=== PATIENT | male | born 1955 | race Caucasian/White ===

== ENCOUNTER → 2017-05-09 | Outpatient (CLI) | payer BC ==
[~2017-05-09] MED LIST: PANT40TA PO; SIMV40TA2 PO
[2017-05-09 12:42] LABS: BASO ABS # 0.06 K/uL (0-0.2); COMPLETE YES; EOS % 10.9 %; HEMATOCRIT 43.2 % (42-52); IG% 0.3 %; LYMPH % 36.8 %; LYMPH ABS # 2.29 K/uL (1.2-3.4); MEAN CELL VOLUME 89.6 fL (80-100); MEAN CORPUSCULAR HEMOGLOBIN 29.7 pg (25-34); MEAN CORPUSCULAR HGB CONC 33.1 g/dl (32-36); MEAN PLATELET VOLUME 10.1 fL (7.4-10.4); MONO % 10.1 %; NEUT % 40.9 %; PLATELET COUNT 215 K/uL (130-400); RED BLOOD COUNT 4.82 M/uL (4.7-6.1); WHITE BLOOD COUNT 6.23 K/uL (4.8-10.8)
[2017-05-09 13:24] LABS: ALT/SGPT 34 U/L (12-78); AST/SGOT 28 U/L (15-37); BLOOD UREA NITROGEN 17 mg/dl (7-18); BUN/CREATININE RATIO 17.3 (10-20); CALCIUM 8.6 mg/dl (8.5-10.1); CARBON DIOXIDE 27 mmol/L (21-32); CHLORIDE 108 mmol/L (98-107); CHOLESTEROL 197 mg/dl (0-200); GLUCOSE 93 mg/dl (70-99); POTASSIUM 4.1 mmol/L (3.5-5.1); SODIUM 140 mmol/L (136-145)
[2017-05-09 13:26] LABS: ALB/GLOB RATIO 1.2 (0.9-2); ALKALINE PHOSPHATASE 76 U/L (45-117); HDL CHOLESTEROL 49 mg/dl; LDL CHOLESTEROL CALCULATED 123 mg/dl; TRIGLYCERIDES 123 mg/dl (0-150); VERY LOW DENSITY LIPOPROT CALC 25 mg/dl
== END | disposition home or self-care (01) ==
LOC: C.LABBFT 07:47
PROVIDERS: ATTEND Internal Medicine
DX: E78.00 Pure hypercholesterolemia, unspecified (principal); D64.9 Anemia, unspecified; R74.8 Abnormal levels of other serum enzymes

== ENCOUNTER 2018-03-31 19:11 | Emergency (ER) | payer BC ==
[~2018-03-31] VITALS: Ht 175.3 cm; Wt 109.0 kg
[2018-03-31 19:19] VITALS: TEMP 36.5; Ht 175.3 cm; Wt 109.0 kg
[2018-03-31] MEDS ORDERED: ASPIRIN 81 MG CHEW PO STA (19:35)
[2018-03-31 19:49] LABS: BASO % 0.4 %; BASO ABS # 0.05 K/uL (0-0.2); EOS % 4.4 %; HEMATOCRIT 46.2 % (42-52); HEMOGLOBIN 15.3 g/dL (14.0-18.0); IG# 0.04 K/uL (0.00-0.02); LYMPH % 40.9 %; LYMPH ABS # 4.64 K/uL (1.2-3.4); MEAN CELL VOLUME 88.7 fL (80-100); MEAN CORPUSCULAR HEMOGLOBIN 29.4 pg (25-34); MEAN CORPUSCULAR HGB CONC 33.1 g/dl (32-36); MEAN PLATELET VOLUME 9.5 fL (7.4-10.4); MONO ABS # 1.13 K/uL (0.11-0.59); NEUT % 43.9 %; NEUT ABS # 4.98 K/uL (1.4-6.5); PLATELET COUNT 254 K/uL (130-400); RED CELL DISTRIBUTION WIDTH CV 13.5 % (11.5-14.5); RED CELL DISTRIBUTION WIDTH SD 43.8 fL (36.4-46.3); WHITE BLOOD COUNT 11.34 K/uL (4.8-10.8)
--- NOTE | 2018-03-31 19:51 | DIAGNOSTIC IMAGING REPORT ---
CHEST ONE VIEW PORTABLE CLINICAL HISTORY: CHEST PAIN pain COMPARISON STUDY: 02/12/2012 FINDINGS: The bones soft tissues and hemidiaphragms are normal. The cardiomediastinal silhouette is normal. The lungs are clear. The pulmonary vasculature is normal. Slight fullness right hilum felt to be secondary to patient rotation IMPRESSION: No acute process. The above report was generated using voice recognition software. It may contain grammatical, syntax or spelling errors. Electronically signed by: Saravanan Booth M.D. 03/31/2018 7:49 PM Dictated Date/Time: 03/31/2018 7:49 PM
[2018-03-31] MEDS ORDERED: MULT-513 PO (20:09)
[2018-03-31] MEDS ORDERED: FERR325T18 PO (20:09)
[2018-03-31 20:17] LABS: ALBUMIN 4.5 gm/dl (3.4-5.0); CKMB 2.5 ng/ml (0.5-3.6); TOTAL PROTEIN 8.3 gm/dl (6.4-8.2)
[2018-03-31 21:18] LABS: CALCIUM 9.9 mg/dl (8.5-10.1); CREATININE 1.1 mg/dl (0.60-1.40); POTASSIUM 3.9 mmol/L (3.5-5.1)
[2018-03-31 21:54] VITALS: BP 121/86; PULSE 67; O2SAT 96
--- NOTE | 2018-04-01 00:14 | EMERGENCY ROOM VISIT NOTE ---
History First contact with patient: 19:18 Chief Complaint: CHEST PAIN Stated Complaint: LEFT SIDE CHEST PAIN, HEAVINESS Nursing Triage Summary: Left sided chest pain radiating at times to left arm and left side of neck. SX' s for the last 2 days. Pt denies any oher discomforts. History of Present Illness The patient is a 62 year old male who presents to the Emergency Room with complaints of left chest pain that has been going on for 2 days persistently. He describes as heaviness. He ate occasional occasional twinge that lasts a second or 2 in his arm and neck. No radiation to his back. No associated symptoms such as shortness of breath, nausea, vomiting, or diaphoresis. He says nothing makes it better or worse. it is not pleuritic is not worse with movement. he has had some stress. No blood or melena stool. No syncope, lightheadedness, or dizziness. No trauma or injury. Source of History: patient, spouse/significant other Review of Systems As above. All other systems reviewed were negative unless otherwise stated in history. At least 10 were reviewed Past Medical/Surgical History Old medical records were reviewed. Nurse's notes were reviewed and I agree with. Social History Smoking Status: Never Smoker Alcohol Use: none Current/Historical Medications Scheduled Ferrous Gluconate (Ferrous Gluconate), 324 MG PO DAILY Multivitamins/Minerals (Mvi With Minerals), 1 TAB PO DAILY Pantoprazole (Protonix), 40 MG PO DAILY Simvastatin (Zocor), 40 MG PO QPM Physical Exam Vital Signs Date Time Temp Pulse Resp B/P (MAP) Pulse Ox O2 Delivery O2 Flow Rate FiO2 03/31/18 21:54 67 18 121/86 96 Room Air 03/31/18 20:44 67 18 170/95 98 Room Air 03/31/18 19:37 63 03/31/18 19:27 97 Room Air 03/31/18 19:19 36.5 63 20 157/84 99 Room Air Physical Exam General: Well developed well nourished in no acute distress, breathing comfortably on room air. Normal speech HEENT: Normal cephalic atraumatic. Pupils are equal round and reactive to light. Extraocular movements are intact. Oropharynx is pink with moist mucous membranes. No swelling of the mouth lips or tongue. Neck: Supple with a midline trachea. No meningeal signs or stiffness, no JVD or bruits. No Stridor. Chest: Clear to auscultation bilaterally. No wheezes or rhonchi. No increased work of breathing. Heart: Regular rate and rhythm without murmurs or gallops. Abdomen: Soft nontender, nondistended without rebound guarding or rigidity. Extremities: No cyanosis clubbing or edema. No calf tenderness or assymetry Spine/Back. Non tender to palpation. No CVA tenderness Skin: Good turgor without rashes. Neurologic exam: Cranial nerves two through 12 are intact. Motor and sensation are intact and symmetrical throughout. Medical Decision & Procedures ER Provider Diagnostic Interpretation: Chest x-ray: No acute infiltrate, failure, pneumothorax seen Note: I have personally interpreted the x-ray and clinical decision-making is based upon my interpretation Laboratory Results 03/31/18 19:25 Red Blood Count 5.21, Mean Corpuscular Volume 88.7, Mean Corpuscular Hemoglobin 29.4, Mean Corpuscular Hemoglobin Concent 33.1, Mean Platelet Volume 9.5, Neutrophils (%) (Auto) 43.9, Lymphocytes (%) (Auto) 40.9, Monocytes (%) (Auto) 10.0, Eosinophils (%) (Auto) 4.4, Basophils (%) (Auto) 0.4, Neutrophils # (Auto ) 4.98, Lymphocytes # (Auto) 4.64, Monocytes # (Auto) 1.13, Eosinophils # (Auto ) 0.50, Basophils # (Auto) 0.05 03/31/18 19:25 Test 03/31/18 19:25 03/31/18 21:24 White Blood Count 11.34 K/uL (4.8-10.8) Red Blood Count 5.21 M/uL (4.7-6.1) Hemoglobin 15.3 g/dL (14.0-18.0) Hematocrit 46.2 % (42-52) Mean Corpuscular Volume 88.7 fL (80-100) Mean Corpuscular Hemoglobin 29.4 pg (25-34) Mean Corpuscular Hemoglobin Concent 33.1 g/dl (32-36) Platelet Count 254 K/uL (130-400) Mean Platelet Volume 9.5 fL (7.4-10.4) Neutrophils (%) (Auto) 43.9 % Lymphocytes (%) (Auto) 40.9 % Monocytes (%) (Auto) 10.0 % Eosinophils (%) (Auto) 4.4 % Basophils (%) (Auto) 0.4 % Neutrophils # (Auto) 4.98 K/uL (1.4-6.5) Lymphocytes # (Auto) 4.64 K/uL (1.2-3.4) Monocytes # (Auto) 1.13 K/uL (0.11-0.59) Eosinophils # (Auto) 0.50 K/uL (0-0.5) Basophils # (Auto) 0.05 K/uL (0-0.2) RDW Standard Deviation 43.8 fL (36.4-46.3) RDW Coefficient of Variation 13.5 % (11.5-14.5) Immature Granulocyte % (Auto) 0.4 % Immature Granulocyte # (Auto) 0.04 K/uL (0.00-0.02) Anion Gap 9.0 mmol/L (3-11) Est Creatinine Clear Calc Drug Dose 84.7 ml/min Estimated GFR () 82.9 Estimated GFR (Non- 71.6 BUN/Creatinine Ratio 12.4 (10-20) Calcium Level 9.9 mg/dl (8.5-10.1) Total Bilirubin 0.4 mg/dl (0.2-1) Direct Bilirubin 0.1 mg/dl (0-0.2) Aspartate Amino Transf (AST/SGOT) 28 U/L (15-37) Alanine Aminotransferase (ALT/SGPT) 34 U/L (12-78) Alkaline Phosphatase 85 U/L (45-117) Total Creatine Kinase 252 U/L (39-308) Creatine Kinase MB 2.5 ng/ml (0.5-3.6) Creatine Kinase MB Ratio 1.0 (0-3.0) Total Protein 8.3 gm/dl (6.4-8.2) Albumin 4.5 gm/dl (3.4-5.0) Lipase 189 U/L (73-393) Thyroid Stimulating Hormone (TSH) 1.920 uIu/ml (0.300-4.500) Bedside Troponin I < 0.030 ng/ml (0-0.045) Medications Administered Medications (Trade) Dose Ordered Sig/Osbaldo Route Start Time Stop Time Status Last Admin Dose Admin Aspirin (Aspirin Chew) 324 mg NOW STAT PO 03/31/18 19:35 03/31/18 19:37 DC 03/31/18 19:51 324 MG ECG Per My Interpretation Indication: chest pain Rate (beats per minute): 62 Rhythm: normal sinus Findings: nonspecific-ST abn, no acute ischemic change Change: no significant change Change: Compared to 12-20-2001, no acute change. Slight flattening of the T-wave EKG #2. Normal sinus rhythm with a rate of 60. No acute ischemic changes or ectopy. No significant change compared EKG #1. Medical Decision Differential diagnosis includes, acute coronary syndrome, arrhythmia, CHF, anxiety, GERD, PE, aortic pathology This patient comes in as described above .he has had some left-sided chest pressure for 2 days persistently. He looks well on exam. EKG does not show any definite acute ischemic changes .EKG #2 does not show any progression or changes when compared EKG #1. he had 2 troponins done over 90 minutes apart which were negative. chest x-ray does not suggest congestive heart failure, pneumonia, or pneumothorax. IHe has no significant electrolyte or metabolic abnormalities. He feels good would like to go home. he was given aspirin while he was here. I think that this most likely is noncardiac. I explained the risks and the benefits and told him we could admit him/observe him for further treatment evaluations. he would rather go home, I think this is reasonable with close follow-up with his regular doctor. It may be GERD or anxiety related. He should return if: increasing pain, worsening of symptoms, fever or chills, any new problems or concerns. He should take a baby aspirin a day. The patient and his were happy the plan and he was discharged to home. Impression Primary Impression: Left sided chest pain Departure Information Dispostion Home / Self-Care Condition GOOD Referrals Duy Ojeda M.D. (PCP) Forms Call Back Authorization, HOME CARE DOCUMENTATION FORM, IMPORTANT VISIT INFORMATION Patient Instructions My [facility] Additional Instructions Rest. Drink plenty of fluids. Return if: Worsening symptoms, increasing pain, shortness of breath, any new problems or concerns Take a baby aspirin 81 mg a day Up with your doctor for recheck on Tuesday
== END 2018-03-31 22:02 | disposition home or self-care (01) ==
LOC: C.EDB 19:12 → C.EDC 22:02
DX: R07.9 Chest pain, unspecified (principal); Z79.899 Other long term (current) drug therapy